=== PATIENT | female | born 1980 | race African-American/Black ===

== ENCOUNTER 2020-12-02 21:45 | Inpatient (IN) | payer OTHER ==
[~2020-12-02] VITALS: Ht 165.1 cm; Wt 134.7 kg
[2020-12-02 23:09] LABS: BASOPHILS 0.3 % (0-2); EOSINOPHILS 0.3 % (0-7); HEMATOCRIT 40.3 % (36.0-48.0); HEMOGLOBIN 13.3 g/dL (12-16); LYMPHOCYTES 12.6 % (15-50); MCH 28.1 pg (26.0-34.0); MCHC 32.9 g/dL (31.0-37.0); MCV 85.3 fL (80.0-100.0); MEAN PLATELET VOLUME 9.2 fL (7.4-10.4); MONOCYTES 13.1 % (2-11); NEUTROPHILS 73.7 % (40-80); PLATELET COUNT 308 10x3/uL (130-400); RBC 4.73 10x6/uL (4.00-5.40); RDW 13.2 % (11.5-14.5)
[2020-12-02 23:10] LABS: BILIRUBIN NEGATIVE (NEGATIVE); KETONE NEGATIVE mg/dL (< 1+); NITRITE NEGATIVE (NEGATIVE); SQUAMOUS EPITHELIAL 8 HPF (0-4); UROBILINOGEN NORMAL mg/dL (< 2); WHITE CELLS - URINE 5 HPF (0-4)
[2020-12-02 23:13] LABS: HCG URINE NEGATIVE (NEGATIVE)
[2020-12-02 23:14] LABS: CALC OSMOLALITY 276 mosm/kg (275-300); CALCIUM 8.6 mg/dL (8.5-10.1); CARBON DIOXIDE 33.7 mmol/L (21.0-32.0); CHLORIDE - SERUM 97 mmol/L (98-107); CREATININE - SERUM 1.1 mg/dL (0.6-1.3); GLUCOSE 94 mg/dL (74-106); SODIUM 138 mmol/L (136-145); UREA NITROGEN 14 mg/dL (7-18); eGFR NON AFRICAN AMERICAN 59 mL/min (90-120)
[2020-12-02 23:24] LABS: ALBUMIN 3.3 g/dL (3.4-5.0); ALKALINE PHOSPHATASE 70 U/L (30-120); ALT (SGPT) 55 U/L (10-68); AMYLASE - SERUM 63 U/L (25-115); BILIRUBIN - TOTAL 0.43 mg/dL (0.2-1.3); LIPASE 148 U/L (73-393); PROTEIN - SERUM 8.4 g/dL (6.4-8.2)
[2020-12-02 23:26] LABS: TROPONIN-I < 0.017 ng/mL (0.000-0.060)
--- NOTE | 2020-12-03 02:50 | NUR ---
PT MOVED TO EXAM ROOM 2 AT THIS TIME.
--- NOTE | 2020-12-03 03:48 | NUR ---
CRITICAL LAB VALUE CALLED TO ED AT THIS TIME. D-DIMER OF 2.90. NOTIFIED AT THIS TIME. FURTHER ORDERS ENTERED INTO CHART.
[2020-12-03 08:36] LABS: BASOPHILS 0.3 % (0-2); EOSINOPHILS 0.3 % (0-7); HEMATOCRIT 39.1 % (36.0-48.0); HEMOGLOBIN 12.7 g/dL (12-16); LYMPHOCYTES 13.2 % (15-50); MCH 28.2 pg (26.0-34.0); MCHC 32.6 g/dL (31.0-37.0); MCV 86.5 fL (80.0-100.0); MEAN PLATELET VOLUME 9.1 fL (7.4-10.4); MONOCYTES 12.8 % (2-11); NEUTROPHILS 73.4 % (40-80); PLATELET COUNT 278 10x3/uL (130-400); RBC 4.52 10x6/uL (4.00-5.40); WBC 9.1 10x3/uL (4.8-10.8)
[2020-12-03 08:43] LABS: CALC OSMOLALITY 275 mosm/kg (275-300); CALCIUM 8.6 mg/dL (8.5-10.1); CARBON DIOXIDE 31.1 mmol/L (21.0-32.0); CHLORIDE - SERUM 99 mmol/L (98-107); GLUCOSE 98 mg/dL (74-106); SODIUM 138 mmol/L (136-145); UREA NITROGEN 13 mg/dL (7-18)
[2020-12-03 08:56] LABS: CREATININE - SERUM 0.8 mg/dL (0.6-1.3); eGFR NON AFRICAN AMERICAN 85 mL/min (90-120)
[2020-12-03 09:14] LABS: POTASSIUM - SERUM 2.8 mmol/L (3.5-5.1)
--- NOTE | 2020-12-03 09:56 | NUR ---
JOE EGAN FROM DR BALDERAS OFFICE HERE
[2020-12-03] MEDS ORDERED: FERROUS SULFAT325 MG PO (14:40)
[2020-12-03] MEDS ORDERED: K-TAB10 MEQ PO (14:40)
[2020-12-03] MEDS ORDERED: TOPAMAX50 MG PO (14:41)
[2020-12-03] MEDS ORDERED: TRIAMTERENE-HC1 EAC6 PO (14:42)
[2020-12-03] MEDS ORDERED: MOBIC7.5 MG PO (14:42)
[2020-12-03] MEDS ORDERED: NEURONTIN 300300 MG PO (14:43)
[2020-12-03] MEDS ORDERED: IBUPROFEN800 MG PO (14:44)
[2020-12-03] MEDS ORDERED: PROPRANOLOL HCL20 MG PO (14:45)
[2020-12-03] MEDS ORDERED: HYDROCODON-ACE1 EA10 PO (14:46)
[2020-12-03] MEDS ORDERED: XANAX0.5 MG PO (14:47)
[2020-12-03] MEDS ORDERED: DIFLUCAN200 MG PO (14:48)
[2020-12-03] MEDS ORDERED: MAXALT10 MG PO (14:50)
[2020-12-03] MEDS ORDERED: OMEPRAZOLE20 M1 PO (14:50)
[2020-12-03 14:51] VITALS: BP 139/67; BMI 49.5
--- NOTE | 2020-12-03 14:59 | NUR ---
TO UNIT FROM ER. DENIES NEEDS AT THIS TIME. VISITOR AT BEDSIDE. BED LOW POSITION, CALL LIGHT IN REACH. FREE FROM SIGNS OF DISTRESS. VITAL SIGNS STABLE. WILL CONTINUE TO MONITOR.
--- NOTE | 2020-12-03 16:22 | NUR ---
NEW IV PLACED IN RIGHT HAND 22 GAUGE. OLD IV WENT BAD.
--- NOTE | 2020-12-03 19:48 | NUR ---
PT SITTING UP IN BED WITHOUT DISTRESS, AOX4. FAMILY AT BEDSIDE. DENIES PAIN OR NEEDS AT THIS TIME. STATES MORPHINE HELPED HEADACHE. CL IN REACH
[2020-12-03 20:59] VITALS: BP 130/77
[2020-12-03 23:55] VITALS: BP 109/71
--- NOTE | 2020-12-04 07:50 | NUR ---
IN BED SLEEPING. DENIES NEEDS. BED LOW POSITION, CALL LIGHT IN REACH. WILL CONTINUE TO MONITOR.
[2020-12-04 08:03] LABS: ANION GAP 14.5 mmol/L (8-16); CALCIUM 8.2 mg/dL (8.5-10.1); CARBON DIOXIDE 27.8 mmol/L (21.0-32.0); CREATININE - SERUM 0.9 mg/dL (0.6-1.3)
[2020-12-04 08:05] LABS: POTASSIUM - SERUM 3.3 mmol/L (3.5-5.1)
[2020-12-04 08:10] LABS: BASOPHILS 0.2 % (0-2); EOSINOPHILS 0.3 % (0-7); HEMATOCRIT 34.8 % (36.0-48.0); HEMOGLOBIN 11.1 g/dL (12-16); LYMPHOCYTES 17.2 % (15-50); MCH 27.7 pg (26.0-34.0); MCHC 31.9 g/dL (31.0-37.0); MCV 86.9 fL (80.0-100.0); MEAN PLATELET VOLUME 9.2 fL (7.4-10.4); MONOCYTES 14.7 % (2-11); NEUTROPHILS 67.6 % (40-80); PLATELET COUNT 287 10x3/uL (130-400); RBC 4.01 10x6/uL (4.00-5.40)
[2020-12-04 08:13] LABS: APTT 29.8 SECONDS (22.8-39.4); INR 1.32 (0.85-1.17); PROTIME 15.2 SECONDS (11.6-15.0)
[2020-12-04 08:24] LABS: WBC 6.1 10x3/uL (4.8-10.8)
--- NOTE | 2020-12-04 08:31 | NUR ---
PER DR GODOY IN [facility]: CONSULT FOR CT ABSCESS DRAIN PLACEMENT WILL GO TO PEER TO PEER REVIEW AND HE WILL MAKE A DECISION AND GET BACK TO ME.
[2020-12-04 09:01] VITALS: BP 113/58
[2020-12-04 12:57] VITALS: Ht 165.1 cm; Wt 134.7 kg
[2020-12-04 17:15] VITALS: BP 111/66
[2020-12-04 20:00] VITALS: BP 119/63
--- NOTE | 2020-12-04 20:00 | NUR ---
PT SITTING UP IN BED WITHOUT DISTRESS, AOX4. DENIES PAIN OR NEEDS AT THIS TIME. CL IN REACH
[2020-12-05] VITALS: BP 117/63
[2020-12-05 04:00] VITALS: BP 84/60
[2020-12-05 05:08] LABS: BASOPHILS 0.4 % (0-2); EOSINOPHILS 0.2 % (0-7); HEMATOCRIT 34.1 % (36.0-48.0); HEMOGLOBIN 10.9 g/dL (12-16); LYMPHOCYTES 20.7 % (15-50); MCH 27.7 pg (26.0-34.0); MCHC 31.8 g/dL (31.0-37.0); MEAN PLATELET VOLUME 9.2 fL (7.4-10.4); MONOCYTES 14.7 % (2-11); PLATELET COUNT 261 10x3/uL (130-400); RBC 3.92 10x6/uL (4.00-5.40); RDW 13.2 % (11.5-14.5); WBC 5.5 10x3/uL (4.8-10.8)
[2020-12-05 05:49] LABS: CALC OSMOLALITY 278 mosm/kg (275-300); CALCIUM 7.9 mg/dL (8.5-10.1); CARBON DIOXIDE 25.4 mmol/L (21.0-32.0); CHLORIDE - SERUM 105 mmol/L (98-107); CREATININE - SERUM 0.7 mg/dL (0.6-1.3); GLUCOSE 82 mg/dL (74-106); POTASSIUM - SERUM 3.6 mmol/L (3.5-5.1); SODIUM 141 mmol/L (136-145); eGFR NON AFRICAN AMERICAN > 90 mL/min (90-120)
[2020-12-05 05:52] LABS: UREA NITROGEN 9 mg/dL (7-18)
--- NOTE | 2020-12-05 07:48 | NUR ---
ALERT AND ORIENTED. ASSESSMENT COMPLETE. DENIES NEEDS. BED LOW. CALL YOUNG AND PERSONAL ITEMS IN REACH. WILL CONTINUE TO MONITOR.
[2020-12-05 09:04] VITALS: BP 120/80
--- NOTE | 2020-12-05 09:16 | NUR ---
PATIENT UNHOOKED FROM IV AND TELE AND IV WRAPPED FOR SHOWER.
--- NOTE | 2020-12-05 10:01 | NUR ---
RESTING IN BED. AT BEDSIDE. WILL CONTINUE TO MONITOR.
--- NOTE | 2020-12-05 10:29 | NUR ---
EDUCATION PROVIDED ON SCDS AND INCENTIVE SPIROMETER. AGREES TO WEAR SCDS AND STATES ALREADY KNOWS HOW TO USE IS. SCDS PLACED ON PATIENT. IS AT BEDSIDE.
--- NOTE | 2020-12-05 12:33 | NUR ---
SITTING UP ON SIDE OF BED EATING LUNCH. DENIES NEEDS. WILL CONTINUE TO MONITOR.
[2020-12-05 12:45] VITALS: BP 128/87
--- NOTE | 2020-12-05 13:24 | NUR ---
REQUESTED AND GIVEN ICE CREAM. DENIES FURTHER NEEDS.
--- NOTE | 2020-12-05 13:40 | NUR ---
RESTING IN BED. DENIES NEEDS. CALL YOUNG IN REACH.
--- NOTE | 2020-12-05 16:45 | NUR ---
PATIENT REFUSES SECOND DOSE SUPPOSITORIES.
[2020-12-05 20:00] VITALS: BP 137/92
[2020-12-06 04:00] VITALS: BP 129/72
--- NOTE | 2020-12-06 05:10 | NUR ---
I have reviewed this patient and I concur with the Shift Assessment completed by the Licensed Practical Nurse today this shift.
--- NOTE | 2020-12-06 05:14 | NUR ---
PT PIPE FITTER SOFT COPPER LIGHT REQUEST A DIFFERENT COUGH MED MD JACQUES WAS CONTACTED NEW ORDER IN PLACE OTHER MED ON HOLD AT THE MOMENT. WILL CONT WITH PLAN OF CARE
--- NOTE | 2020-12-06 08:00 | NUR ---
ALERT AND ORIENTED. ASSESSMENT COMPLETE. DENIES NEEDS. CALL YOUNG AND PERSONAL ITEMS IN REACH. WILL CONTINUE TO MONITOR.
[2020-12-06 08:58] VITALS: BP 142/84
--- NOTE | 2020-12-06 12:47 | NUR ---
RESTING IN BED. DENIES NEEDS. WILL CONTINUE TO MONITOR.
[2020-12-06 13:38] VITALS: BP 138/85
--- NOTE | 2020-12-06 14:04 | NUR ---
RESTING IN BED. DENIES NEEDS. WILL CONTINUE TO MONITOR.
[2020-12-06 14:24] LABS: BASOPHILS 0.2 % (0-2); EOSINOPHILS 0.2 % (0-7); HEMATOCRIT 34.2 % (36.0-48.0); LYMPHOCYTES 15.4 % (15-50); MCH 27.9 pg (26.0-34.0); MCHC 32.3 g/dL (31.0-37.0); MCV 86.4 fL (80.0-100.0); MEAN PLATELET VOLUME 9.3 fL (7.4-10.4); MONOCYTES 9.8 % (2-11); NEUTROPHILS 74.4 % (40-80); PLATELET COUNT 282 10x3/uL (130-400); RBC 3.96 10x6/uL (4.00-5.40)
[2020-12-06 14:39] LABS: ALBUMIN 2.8 g/dL (3.4-5.0); ALKALINE PHOSPHATASE 65 U/L (30-120); ALT (SGPT) 50 U/L (10-68); BILIRUBIN - TOTAL 0.58 mg/dL (0.2-1.3); CALC OSMOLALITY 278 mosm/kg (275-300); CALCIUM 7.9 mg/dL (8.5-10.1); CARBON DIOXIDE 29.3 mmol/L (21.0-32.0); CHLORIDE - SERUM 103 mmol/L (98-107); CREATININE - SERUM 0.7 mg/dL (0.6-1.3); GLUCOSE 101 mg/dL (74-106); POTASSIUM - SERUM 3.2 mmol/L (3.5-5.1); PROTEIN - SERUM 6.8 g/dL (6.4-8.2); SODIUM 141 mmol/L (136-145); UREA NITROGEN 7 mg/dL (7-18); eGFR NON AFRICAN AMERICAN > 90 mL/min (90-120)
--- NOTE | 2020-12-06 16:57 | NUR ---
RESTING IN BED. CALL YOUNG IN REACH.
[2020-12-06 17:47] VITALS: BP 137/85
--- NOTE | 2020-12-06 18:47 | NUR ---
PATIENT SLEEPING. CALL YOUNG IN REACH.
--- NOTE | 2020-12-06 19:00 | NUR ---
BEDSIDE REPORT RECEIVED AND CARE OF PT ASSUMED. PT SITTING UP IN CHAIR WATCHING TV. IV TO RIGHT HAND SALINE LOCKED....PT WISHES NOT TO HAVE IV FLUIDS INFUSING. TELEMETRY IN PLACE AND READING SR AT THIS ASSESSMENT. WILL MONITOR FOR NEEDS.
[2020-12-06 20:00] VITALS: BP 136/88
--- NOTE | 2020-12-06 22:04 | NUR ---
HS MEDICATIONS GIVEN TO INCLUDE 40 MEQ K-DUR PER THE ELECTROLYTE PROTOCOL.
--- NOTE | 2020-12-07 00:10 | NUR ---
PT SHOWERED AND ALL LINENS AND GOWN CHANGED.
--- NOTE | 2020-12-07 00:44 | NUR ---
PLACED 02 AT 2L VIA NC FOR HS PT USES CPAP AT HOME, AND DID NOT BRING TO HOSPITAL.
[2020-12-07 05:37] LABS: BASOPHILS 0.2 % (0-2); EOSINOPHILS 0.7 % (0-7); HEMATOCRIT 32.3 % (36.0-48.0); HEMOGLOBIN 10.4 g/dL (12-16); LYMPHOCYTES 17.1 % (15-50); MCH 27.8 pg (26.0-34.0); MCHC 32.2 g/dL (31.0-37.0); MCV 86.2 fL (80.0-100.0); MONOCYTES 10.4 % (2-11); NEUTROPHILS 71.6 % (40-80); PLATELET COUNT 270 10x3/uL (130-400); RBC 3.75 10x6/uL (4.00-5.40); RDW 13.2 % (11.5-14.5); WBC 6.6 10x3/uL (4.8-10.8)
[2020-12-07 06:01] LABS: ALBUMIN 2.7 g/dL (3.4-5.0); ALKALINE PHOSPHATASE 69 U/L (30-120); ALT (SGPT) 44 U/L (10-68); BILIRUBIN - TOTAL 0.51 mg/dL (0.2-1.3); CALC OSMOLALITY 277 mosm/kg (275-300); CARBON DIOXIDE 30.3 mmol/L (21.0-32.0); CHLORIDE - SERUM 104 mmol/L (98-107); CREATININE - SERUM 0.7 mg/dL (0.6-1.3); GLUCOSE 82 mg/dL (74-106); PROTEIN - SERUM 6.8 g/dL (6.4-8.2); SODIUM 141 mmol/L (136-145); UREA NITROGEN 6 mg/dL (7-18); eGFR NON AFRICAN AMERICAN > 90 mL/min (90-120)
[2020-12-07 06:02] LABS: POTASSIUM - SERUM 3.7 mmol/L (3.5-5.1)
[2020-12-07 08:00] VITALS: BP 126/78
[2020-12-07] MEDS ORDERED: LEVOFLOXACIN500 MG PO (11:03)
[2020-12-07 12:29] VITALS: BP 145/86
[2020-12-07 16:15] VITALS: BP 106/61
--- NOTE | 2020-12-07 16:45 | NUR ---
0700 BEDSIDE SHIFT REPORT RECEIVED AWAKE IN BED WITN NO COMPLAINTS RIGHT BKA ELEVATED UP ON PILLOW
--- NOTE | 2020-12-07 16:46 | NUR ---
1076 WRITTEN AND VERBAL DISCHARGE INSTRUCTION GIVEN PT VERBALLIZED UNDERSTANDING RIGHT HAND IV DISCONTINUED WAITING FOR RIDE TO ARRIVE TO TRANSPORT HOME
--- NOTE | 2020-12-07 19:57 | MORECARE ---
CASE MANAGEMENT DISCHARGE SUMMARY PATIENT: FARHANA LEW UNIT: [id number] ADM DATE: 12/03/20 AGE: 40 : 82 SEX: F ROOM/BED: D.2205 AUTHOR: TRISH,DOC PHYSICIAN: REFERRING PHYSICIAN: EMA JACQUES MD DATE OF SERVICE: 12/07/20 Case Management Discharge Planning Summary DCP REVIEW SUMMARY ANTICIPATED D/C DATE: 12/07/2020 EXPECTED LOS : 4 CASE STATUS: DCP Initiated INITIAL REVIEW: 12/03/2020 INITIAL REVIEWER: Myron He FINAL DISCHARGE DISPOSITION: : FINAL REVIEWER: FINAL REVIEW DATE: DCP Focus Questions & Answers DCP Evaluation QUESTION: ANSWER Patient gives permission to discuss discharge plans with: (name, relationship and number) : Mackenzie chapin, Patient's ability to cope with chronic illness : d. No chronic illness Patient's current cognitive status: : *Oriented to person, place, situation, time and present Family / Caregiver's ability to cope with chronic illness: : a. Adequate (ability to meet patient's medical needs, ensures patient attends medical appts.) Patient and/or caregiver agree upon recommended discharge plan? : Yes Physical Status: : Independent with ADL's Family / Caregiver's ability to cope with chronic illness: : a. Adequate (ability to meet patient's medical needs, ensures patient attends medical appts.) Functional screen assessment: : Basic needs can adequately be met by self Does the patient have the ability to pay for or attain post discharge needs / services? : Yes Living Arrangements: : Home with Extended Family Is there a likelihood that the patient will require additional services to return to the preadmission environment? : No Equipment needed for post hospitalization: : None Baseline cognitive status: : *Oriented to person, place, situation, time and present Patient with capacity for self-care or can be cared for in same environment as prior to hospitalization? : Yes Physical environment modification needed / anticipated for discharge: : No Medication Management: : Patient states can read and understand medication labels Pharmacy name(s): : [facility] on [address] Does Patient have transportation to get home and to follow-up medical appointments when discharged from the hospital? : Yes Would patient like to participate in any Care Coordination programs (if applicable): : Not applicable Does the patient have electricity at home? : Yes Does the patient have running water in their house? : Yes Equipment in use: : None Mental health screen: : No mental health history DCP Re-evaluation QUESTION: ANSWER Would patient like to participate in any Care Coordination programs (if applicable): : Not applicable PATIENT: FARHANA LEW ENCOUNTER: [id number] MEDICAL RECORD#: [id number] ADMISSION DATE: 12/03/2020 DISCHARGE DATE: 12/07/2020 ATTENDING MD: FLOR: AGE: 40 MARITAL STATUS: M DC PLAN ID: [id number] FACILITY: [facility] PRINTED ON: 12/07/20 19:56 CT All edits/amendments must be made on the electronic document DICTATION DATE: 12/07/201955 AIRPORT SECURITY SCREENER: JERICA 12/07/201955 RPT#: [id number] DC DATE:12/07/20 STATUS: DIS IN [facility] [address] [place] [address] END OF REPORT
--- NOTE | 2020-12-07 20:07 | MORECARE ---
CASE MANAGEMENT DISCHARGE SUMMARY PATIENT: FARHANA LEW UNIT: [id number] ADM DATE: 12/03/20 AGE: 40 : 82 SEX: F ROOM/BED: D.2205 AUTHOR: TRISH,DOC PHYSICIAN: REFERRING PHYSICIAN: EMA JACQUES MD DATE OF SERVICE: 12/07/20 Case Management Discharge Planning Summary COMMENTS ENTERED DATE: 12/07/20 19:58 CT COMMENT TYPE: Discharge Planning REVIEWER: Myron He CM met with patient to complete DC plan and to evaluate needs. Patient lives independently with family and stated that her person to notify is her sister, Mackenzie Nicolas, . Patient stated that her home is safe and has electricity and running water. Patient stated that she is able to enter and move about her home without difficulty. Patient stated that she has no problems paying for medications and she fills her medications at [facility] on [address]. Patient stated that her primary care physician is Dr. Jacques. At discharge, the patient plans to return home and feels this is a safe discharge. CM discussed availability of home health, rehab services, and medical equipment. Patient declined HHS, SNF, IPR, and DME. Patient voiced no other needs at this time and is satisfied with DC plan. CM will continue to follow and will assist as needed with dc plans/needs. MTP REVIEW SUMMARY ANTICIPATED D/C DATE: 12/07/2020 EXPECTED LOS : 4 CASE STATUS: DCP Initiated INITIAL REVIEW: 12/03/2020 INITIAL REVIEWER: Myron He FINAL DISCHARGE DISPOSITION: : FINAL REVIEWER: FINAL REVIEW DATE: MTP Focus Questions & Answers MTP Evaluation QUESTION: ANSWER Patient gives permission to discuss discharge plans with: (name, relationship and number) : sister, Mackenzie Nicolas, Patient's ability to cope with chronic illness : d. No chronic illness Patient's current cognitive status: : *Oriented to person, place, situation, time and present Family / Caregiver's ability to cope with chronic illness: : a. Adequate (ability to meet patient's medical needs, ensures patient attends medical appts.) Patient and/or caregiver agree upon recommended discharge plan? : Yes Physical Status: : Independent with ADL's Family / Caregiver's ability to cope with chronic illness: : a. Adequate (ability to meet patient's medical needs, ensures patient attends medical appts.) Functional screen assessment: : Basic needs can adequately be met by self Does the patient have the ability to pay for or attain post discharge needs / services? : Yes Living Arrangements: : Home with Extended Family Is there a likelihood that the patient will require additional services to return to the preadmission environment? : No Equipment needed for post hospitalization: : None Baseline cognitive status: : *Oriented to person, place, situation, time and present Patient with capacity for self-care or can be cared for in same environment as prior to hospitalization? : Yes Physical environment modification needed / anticipated for discharge: : No Medication Management: : Patient states can read and understand medication labels Pharmacy name(s): : [facility] on [address] Does Patient have transportation to get home and to follow-up medical appointments when discharged from the hospital? : Yes Would patient like to participate in any Care Coordination programs (if applicable): : Not applicable Does the patient have electricity at home? : Yes Does the patient have running water in their house? : Yes Equipment in use: : None Mental health screen: : No mental health history DCP Re-evaluation QUESTION: ANSWER Would patient like to participate in any Care Coordination programs (if applicable): : Not applicable PATIENT: FARHANA LEW ENCOUNTER: [id number] MEDICAL RECORD#: [id number] ADMISSION DATE: 12/03/2020 DISCHARGE DATE: 12/07/2020 ATTENDING MD: FLOR: AGE: 40 MARITAL STATUS: M DC PLAN ID: [id number] FACILITY: [facility] PRINTED ON: 12/07/20 20:07 CT All edits/amendments must be made on the electronic document DICTATION DATE: 12/07/202006 MANAGER UTILIZATION REVIEW: JERICA 12/07/202006 RPT#: [id number] DC DATE:12/07/20 STATUS: DIS IN [facility] [address] [place] [address] END OF REPORT
== END 2020-12-07 18:30 | disposition home or self-care (01) | DRG 379 ==
LOC: D.ER 21:45 → D.EDHOLD 12-03 05:29 → D.MS 12-03 05:29
PROVIDERS: Family Medicine; Specialist; Surgery; ADMIT Emergency Medicine; ATTEND Emergency Medicine
DX: K57.81 Diverticulitis of intestine, part unspecified, with perforation and abscess with bleeding (principal); I10 Essential (primary) hypertension; E87.6 Hypokalemia; G47.30 Sleep apnea, unspecified; K21.9 Gastro-esophageal reflux disease without esophagitis